=== PATIENT | female | born 1995 | race Caucasian/White ===

== ENCOUNTER 2022-11-08 23:54 | Emergency (ER) | payer BC, MEDICAID, SELFPAY ==
[2022-11-08 23:56] VITALS: BP 133/88; PULSE 102; RESP 16; TEMP 36.6; O2SAT 100; BMI 26.5
--- NOTE | 2022-11-09 00:04 | ECG_ITS ---
[facility] Test Date: 2022-11-09 Pat Name: Joya Salas Department: Room: Gender: Female Safety And Security Officer: : 1995 Requested By: Naheed Marie Order Number: [id number] Janki MD: Tarah Greene M.D. Measurements Intervals [place] Rate: 84 P: 59 TX: 138 QRS: 53 QRSD: 88 T: 42 QT: 359 QTc: 427 Interpretive Statements SINUS RHYTHM No previous ECG available for comparison Electronically Signed On 11-09-2022 19:39:39 CDT by Tarah Greene M.D. [id number]
--- NOTE | 2022-11-09 00:06 | XRR_ITS ---
PROCEDURE INFORMATION: Exam: XR Chest Exam date and time: 11/09/2022 12:35 AM Age: 27 years old Clinical indication: Pain; Chest pressure; Additional info: Chest pain TECHNIQUE: Imaging protocol: Radiologic exam of the chest. Views: 1 view. COMPARISON: No relevant prior studies available. FINDINGS: Lungs: Unremarkable. No consolidation. Pleural spaces: Unremarkable. No pleural effusion. No pneumothorax. Heart/Mediastinum: Unremarkable. No cardiomegaly. Bones/joints: Unremarkable. XR/XR chest 1V portable [id number] IMPRESSION: No acute findings.
--- NOTE | 2022-11-09 00:07 | W.ED.CHESTPA ---
HPI - Chest Pain General: Chief Complaint: Chest Pain Stated Complaint: cp Time Seen by Provider: 11/08/22 23:56 Source: patient Mode of arrival: ambulatory Limitations: no limitations History of Present Illness: Patient is a 27-year-old female presents to ED today with a complaint of chest pain. She states pain began a few hours ago after they had finished eating. She states pain is located to her left upper chest. Seems to be worse with movement. Patient states pain seems to come and go but when it comes on it is very sharp in nature. She is not having any shortness of breath or difficulty breathing. Denies any chest injury or trauma. No significant PMH. No hemoptysis. No risk factors for PE. MD complaint: chest pain Onset (ago): hour(s) Timing of current episode: constant Prior episodes: No Onset: during rest Pain location: left chest Pain radiation: none Severity: moderate Quality: sharp Relieving factors: nothing Exacerbating factors: movement Associated symptoms: Deny abdominal pain, dyspnea, fever(s), palpitations or syncope Treatment prior to arrival: none Risk Factors: Coronary artery disease risk factors: none Thoracic aortic dissection risk factors: none Related Data: On Oral Contraceptives: No Review of Systems Const: Denies: fever(s), chills, body aches, fatigue or malaise Card: Reports: chest pain; Denies: palpitations, irregular heart rhythm, edema, swelling of feet/ankles, lightheadedness, syncope, pre-syncope, dyspnea on exertion, orthopnea, leg pain with exertion or acrocyanosis Resp: Denies: dyspnea, productive cough, non-productive cough, wheezing, hemoptysis or chest congestion GI: Denies: abdominal pain : Denies: flank pain Musc: Denies: neck pain or back pain Neuro: Denies: headache(s) or dizziness PFS ED PFSH: Medical History Tooth abscess Toothache Female Reproductive History: Date of last menstrual period: 10/15/22 Physical Exam Const: COMMON NORMALS: average body habitus, patient oriented x3, no limitations, healthy appearing, alert and well nourished GENERAL APPEARANCE: cooperative and anxious ORIENTATION/CONSCIOUSNESS: Yes awake, Yes oriented to person, Yes oriented to place and Yes oriented to time HENMT: COMMON NORMALS: normocephalic and atraumatic HEAD & SCALP: normal to inspection, normocephalic and atraumatic Neck/C-Spine: COMMON NORMALS: full ROM GENERAL: Yes normal visual inspection, No anterior neck swelling and No submandibular swelling Chest: COMMONS NORMALS: normal inspection of the chest OTHER: TTP L upper chest wall Chest images (female): 1. TTP Resp: COMMON NORMALS: normal respiratory effort and clear to auscultation bilaterally AUSCULTATION: clear to auscultation bilaterally Cardio: COMMON NORMALS: regular rate and regular rhythm RATE: regular rate RHYTHM: regular rhythm GI: COMMON NORMALS: Normal to inspection, nondistended, normoactive bowel sounds present, Soft to palpation and non-tender PALPATION: Yes Soft to palpation : COMMON NORMALS: Yes no CVA tenderness BLADDER/KIDNEY EXAM: Yes no CVA tenderness Back/Pelvis: COMMON NORMALS: no CVA tenderness, thoracic and lumbar spine normal to inspection, no thoracic nor lumbar tenderness and thoraco-lumbar ROM normal Extremity: COMMON NORMALS: normal to inspection GENERAL: Yes normal exam except as noted Neuro: [place] COMA SCALE: document GCS findings [place] coma scale eye opening: Spontaneous [place] coma scale verbal response: Orientated [place] coma scale motor response: Obey commands [place] coma scale total score: 15 COMMON NORMALS: patient oriented x3, CN's II-XII intact bilaterally, moves all extremities, no focal motor deficits, no sensory deficits noted and gait normal SENSORIUM/ORIENTATION: Yes alert, Yes oriented to person, Yes oriented to place and Yes oriented to time Skin: COMMON NORMALS: no rashes or lesions noted GENERAL SKIN EXAM: no rashes or lesions noted Course Vital Signs: Vital signs: Vital Signs Temperature 97.8 F 11/08/22 23:56 Pulse Rate 102 H 11/08/22 23:56 Respiratory Rate 16 11/08/22 23:56 Blood Pressure 133/88 11/08/22 23:56 Pulse Oximetry 100 11/08/22 23:56 Oxygen Delivery Me thod 11/08/22 23:56 MDM - Chest Pain Medical Decision Making Patient is a nice 27-year-old female here for complaints of left upper chest pain. Pain is reproducible with movement and palpation of her left upper chest wall. Vital signs are stable. EKG is normal. CXR showing no acute findings. Patient was treated with Norflex and Toradol with almost complete resolution of her discomfort. Recommend she treat at home with anti-inflammatories and ice/heat. Return to ED precautions given. Lab Data Radiology Impressions Chest X-Ray 11/09/22 00:06 IMPRESSION: No acute findings. Discharge Plan Discharge Patient Disposition: Home Clinical Impression: Left-sided chest wall pain Condition: Stable Prescriptions: No Action amoxicillin 500 mg tablet 500 mg PO BID Qty: 30 0RF tramadol 50 mg tablet 50 mg PO Q8H PRN (Reason: pain) Qty: 20 0RF Discharge Orders: Discharge ED (Routine); Ordered 11/09/22 Ordered By: Naheed Marie Referrals: To Espinoza MD [Physician] - Andreas Child MD [Primary Care Provider] - Patient Instructions: Chest Pain - Chest Wall Coding Level of Care Code ED Workforce Manager for Renard Sánchez
[2022-11-09] MEDS: orphenadrine 30 mg/mL Inj 2 mL 60 MG IV (00:57)
[2022-11-09] MEDS: ketorolac 60 mg/2 mL INJ IVP (00:57)
== END 2022-11-09 01:45 | disposition home or self-care (01) ==
PROVIDERS: Emergency Provider Physician Assistant; PCP Family Medicine
DX: R07.89 Other chest pain (principal)
CPT/HCPCS: 71045; 93005; 96374; 96375; 99284; J1885; J2360

== ENCOUNTER 2023-06-02 15:39 | Emergency (ER) | payer BC, MEDICAID, SELFPAY ==
[2023-06-02 15:40] VITALS: BP 118/74; PULSE 113; RESP 18; TEMP 36.6; O2SAT 100; BMI 30.8
[2023-06-02 15:56] VITALS: BP 116/67; RESP 18; TEMP 36.6; O2SAT 100
--- NOTE | 2023-06-02 15:56 | ECG_ITS ---
[facility] Test Date: 2023-06-02 Pat Name: Joya Salas Department: Room: Gender: Female Agricultural Research Technician: : 1995 Requested By: Emmanuel Luong Order Number: [id number] Janki MD: Delores Pichardo M.D. Measurements Intervals [place] Rate: 86 P: 51 IN: 139 QRS: 45 QRSD: 84 T: 21 QT: 357 QTc: 427 Interpretive Statements SINUS RHYTHM INTERPRETATION BASED ON A DEFAULT AGE OF 40 YEARS Compared to ECG 11/09/2022 00:08:09 No significant changes Electronically Signed On 06-02-2023 17:16:49 CDT by Delores Pichardo M.D. [id number]
--- NOTE | 2023-06-02 16:03 | W.ED.ARRPALP ---
HPI - Arrhythmia/Palpitations General: Chief Complaint: Arrhythmia/Palpitations Stated Complaint: face is numb, increased hr Time Seen by Provider: 06/02/23 16:02 History of Present Illness: 27-year-old female presents emergency department with her family member. The patient states that she recently sustained a spider bite to the back side of her left lower leg and has been taking antibiotics as well as prednisone by mouth for her spider bite. She states that today she felt like her heart was racing and her fingers and face were tingling. She states she has had a significant amount of life stressors which include her employment and young child at home as well as financial difficulties and the life stressor of potentially purchasing a house. She states that her symptoms have improved since coming to the emergency department but she wanted to be evaluated for any life-threatening illnesses. Associated symptoms: Reports anxiety Review of Systems Card: Reports: palpitations Psych: Reports: anxiety and panic attacks [facility] ED PFSH: Medical History Tooth abscess Toothache Physical Exam Const: COMMON NORMALS: no acute distress, average body habitus, patient oriented x3 and alert HENMT: COMMON NORMALS: normocephalic, atraumatic, hearing grossly normal bilaterally, external ears normal, EAC's normal, Normal nasal mucous membranes and turbinates present and moist oral mucous membranes HEAD & SCALP: normocephalic and atraumatic NOSE: Normal nasal mucous membranes and turbinates present EXTERNAL EAR: Yes external ears normal EXTERNAL AUDITORY CANAL: EAC's normal Eye: COMMON NORMALS: Equal, round and reactive pupils present, EOMs intact bilaterally and no scleral icterus PUPIL: Yes Equal, round and reactive pupils present Neck/C-Spine: COMMON NORMALS: full ROM, no lymphadenopathy, supple and no meningeal signs Chest: COMMONS NORMALS: normal inspection of the chest and normal palpation of entire chest wall Resp: COMMON NORMALS: normal respiratory effort and clear to auscultation bilaterally AUSCULTATION: clear to auscultation bilaterally Cardio: COMMON NORMALS: regular rate, regular rhythm, S1 normal heart sound present, S2 normal heart sound present, No gallops present (Cardio), No murmurs present (Cardio), No rub (Cardio) and Peripheral pulses 2+ throughout RATE: regular rate RHYTHM: regular rhythm HEART SOUNDS: S1 normal heart sound present and S2 normal heart sound present PERIPHERAL PULSES: Peripheral pulses 2+ throughout GI: COMMON NORMALS: Normal to inspection, nondistended, normoactive bowel sounds present, Soft to palpation and non-tender PALPATION: Yes Soft to palpation : COMMON NORMALS: Yes no CVA tenderness BLADDER/KIDNEY EXAM: Yes no CVA tenderness Back/Pelvis: COMMON NORMALS: no CVA tenderness, thoracic and lumbar spine normal to inspection, no thoracic nor lumbar tenderness and thoraco-lumbar ROM normal Extremity: COMMON NORMALS: normal to inspection (Patient does have a healing wound to the left calf area), full ROM and capillary refill normal Neuro: COMMON NORMALS: patient oriented x3, CN's II-XII intact bilaterally, moves all extremities, no focal motor deficits, no sensory deficits noted and gait normal SENSORIUM/ORIENTATION: Yes alert MENINGEAL SIGNS: Yes no meningeal signs Psych: COMMON NORMALS: mental status grossly normal, Normal thought process present, cooperative and speech normal SPEECH: Yes normal speech THOUGHT PROCESS: Normal thought process present Skin: COMMON NORMALS: turgor normal GENERAL SKIN EXAM: turgor normal Course Vital Signs: Vital signs: Vital Signs Temperature 98 F 06/02/23 15:56 Pulse Rate 69 06/02/23 18:13 Respiratory Rate 18 06/02/23 18:13 Blood Pressure 109/63 06/02/23 18:13 Pulse Oximetry 98 06/02/23 18:13 Oxygen Delivery Me thod Room Air 06/02/23 18:00 MDM - Arrhythmia/Palpitations Medical Decision Making Physical exam completed and documented, we will obtain laboratory evaluation as well as a twelve-lead EKG to evaluate the patient's presenting complaints. I did have extensive discussion with the patient regarding seeking behavioral health counseling to help her deal with her life stressors. Patient did appear to be relieved after discussing her twelve-lead EKG and her laboratory findings. Patient was provided discharge instructions and was discharged home in stable condition after we ruled out electrolyte abnormalities and acute cardiac abnormalities. Medical Records I reviewed the patient's medical records. Lab Data I reviewed the patient's lab results. 06/02/23 16:12 06/02/23 16:12 Laboratory Results WBC 6.90 10^3/uL (3.29-11.43) 06/02/23 16:12 RBC 4.39 10^6/uL (3.85-5.65) 06/02/23 16:12 Hgb 13.70 g/dL (11.27-16.99) 06/02/23 16:12 Hct 42.6 % (36-47) 06/02/23 16:12 MCV 97.0 fl (85-98) 06/02/23 16:12 MCH 31.2 pg (27-33) 06/02/23 16:12 MCHC 32.2 g/dL (30-55) 06/02/23 16:12 RDW 12.3 % (12.1-15.1) 06/02/23 16:12 Plt Count 242 10^3/cmm (157-399) 06/02/23 16:12 MPV 9.8 fL (7.4-10.4) 06/02/23 16:12 Neut % (Auto) 54.9 % 06/02/23 16:12 Lymph % (Auto) 28.8 % 06/02/23 16:12 [place] % (Auto) 12.8 % 06/02/23 16:12 Eos % (Auto) 1.9 % 06/02/23 16:12 Baso % (Auto) 1.2 % 06/02/23 16:12 Neut # (Auto) 3.79 10^3/uL (1.8-7.7) 06/02/23 16:12 Lymph # (Auto) 2.0 10^3/uL (0.8-4.8) 06/02/23 16:12 [place] # (Auto) 0.9 10^3/uL (0.2-0.9) 06/02/23 16:12 Eos # (Auto) 0.1 10^3/uL (0.0-0.8) 06/02/23 16:12 Baso # (Auto) 0.1 10^3/uL (0.0-0.1) 06/02/23 16:12 Nucleated RBC % (auto) 0 % 06/02/23 16:12 Nucleated RBCs # 0.0 /100WBC 06/02/23 16:12 Sodium 140 mmol/L (136-145) 06/02/23 16:12 Potassium 4.7 mmol/L (3.5-5.1) 06/02/23 16:12 Chloride 103 mmol/L (98-107) 06/02/23 16:12 Carbon Dioxide 28 mmol/L (22-29) 06/02/23 16:12 Anion Gap 13.7 (5-19) 06/02/23 16:12 BUN 13 mg/dL (6-20) 06/02/23 16:12 Creatinine 0.7 mg/dL (0.5-0.9) 06/02/23 16:12 GFR Calculation 98.9 mL/min (90-130) 06/02/23 16:12 Glucose 102 mg/dL (65-115) 06/02/23 16:12 Calculated Osmolality 290 mOsm/kg (285-295) 06/02/23 16:12 Calcium 8.9 mg/dL (8.5-10.5) 06/02/23 16:12 Magnesium 2.1 mg/dL (1.7-2.3) 06/02/23 16:12 Total Bilirubin 0.2 mg/dL (0.15-1.2) 06/02/23 16:12 AST 18 U/L (0-32) 06/02/23 16:12 ALT 21 U/L (0-33) 06/02/23 16:12 Alkaline Phosphatase 54 U/L (35-105) 06/02/23 16:12 Total Protein 7.7 g/dL (6.6-8.7) 06/02/23 16:12 Albumin 4.6 g/dL (3.5-5.2) 06/02/23 16:12 Globulin 3.1 g/dL (1.3-4.6) 06/02/23 16:12 HCG, Qual Negative (Negative) 06/02/23 16:00 Urine Color Colorless (Yellow) 06/02/23 16:00 Urine Appearance Clear (CLEAR) 06/02/23 16:00 Urine pH 6 (5-7) 06/02/23 16:00 Ur Specific [place] 1.005 (1.005-1.030) 06/02/23 16:00 Urine Protein Neg (Negative) 06/02/23 16:00 Urine Glucose (UA) Norm (Normal) 06/02/23 16:00 Urine Ketones Negative (Negative) 06/02/23 16:00 Urine Blood Neg (Negative) 06/02/23 16:00 Urine Nitrate Negative (Negative) 06/02/23 16:00 Urine Bilirubin Neg (Negative) 06/02/23 16:00 Urine Urobilinogen Norm mg/dL (Negative) 06/02/23 16:00 Ur Leukocyte Esterase Negative (Negative) 06/02/23 16:00 Urine Opiates Screen Negative ng/mL (Negative) 06/02/23 16:00 Ur Barbiturates Screen Negative ng/mL (Negative) 06/02/23 16:00 Ur Phencyclidine Scrn Negative ng/mL (Negative) 06/02/23 16:00 Ur Amphetamines Screen Negative ng/mL (Negative) 06/02/23 16:00 U Benzodiazepines Scrn Negative ng/mL (Negative) 06/02/23 16:00 Urine Cocaine Screen Negative ng/mL (Negative) 06/02/23 16:00 U Marijuana (THC) Screen Negative ng/mL (Negative) 06/02/23 16:00 No radiology studies performed this visit Discharge Plan Discharge Patient Disposition: Home Clinical Impression: Anxiety, Palpitations Condition: Stable Prescriptions: No Action sulfamethoxazole-trimethoprim [Bactrim DS] 800-160 mg tablet 1 tab PO Q12H Qty: 14 0RF triamcinolone acetonide 0.5 % cream 1 applic topical BID Qty: 30 2RF Discharge Orders: Discharge ED (Routine); Ordered 06/02/23 Ordered By: Kwaku Becerra Referrals: Andreas Child MD [Primary Care Provider] - Discharge Diet: Advance as tolerated Discharge Activity: Resume usual activity Patient Instructions: Opioid Safety, Pain Management Coding Level of Care Code ED Audiovisual Equipment Operator for Renard Sánchez
[2023-06-02 16:21] LABS: Basophils # 0.1 10^3/uL (0.0-0.1); Basophils % 1.2 %; Eosinophils # 0.1 10^3/uL (0.0-0.8); Eosinophils % 1.9 %; Hematocrit 42.6 % (36-47); Lymphocytes % 28.8 %; Mean Corpuscular HGB Conc 32.2 g/dL (30-55); Mean Corpuscular Hemoglobin 31.2 pg (27-33); Mean Platelet Volume 9.8 fL (7.4-10.4); Monocytes # 0.9 10^3/uL (0.2-0.9); Monocytes % 12.8 %; Neutrophils # 3.79 10^3/uL (1.8-7.7); Neutrophils % 54.9 %; Nucleated Red Blood Cells % 0 %; Platelet Count 242 10^3/cmm (157-399); Red Blood Count 4.39 10^6/uL (3.85-5.65); Red Cell Distribution Width 12.3 % (12.1-15.1)
[2023-06-02 16:39] LABS: Alanine Aminotransferase 21 U/L (0-33); Albumin Level 4.6 g/dL (3.5-5.2); Alkaline Phosphatase 54 U/L (35-105); Anion Gap 13.7 (5-19); Aspartate Amino Transferase 18 U/L (0-32); Blood Urea Nitrogen 13 mg/dL (6-20); Calcium 8.9 mg/dL (8.5-10.5); Carbon Dioxide 28 mmol/L (22-29); Chloride 103 mmol/L (98-107); Globulin 3.1 g/dL (1.3-4.6); Glomerular Filtration Rate 98.9 mL/min (90-130); Glucose 102 mg/dL (65-115); Magnesium 2.1 mg/dL (1.7-2.3); Osmolality Calculated 290 mOsm/kg (285-295); Potassium 4.7 mmol/L (3.5-5.1); Sodium 140 mmol/L (136-145); Total Bilirubin 0.2 mg/dL (0.15-1.2); Total Protein 7.7 g/dL (6.6-8.7)
[2023-06-02 16:44] LABS: HCG Qualitative Urine. Negative (Negative)
[2023-06-02 17:26] LABS: Add Urine Microscopic? NO; Charge for UA Resulting for Rev
[2023-06-02 17:35] LABS: Bilirubin Urine Neg (Negative); Blood Urine Neg (Negative); Glucose Urine UA Norm (Normal); Ketones Urine Negative (Negative); Leukocyte Esterase Urine Negative (Negative); Nitrate Urine Negative (Negative); Protein Urine Neg (Negative); Specific Gravity, Urine 1.005 (1.005-1.030); Urine Appearance Clear (CLEAR); Urine Color Colorless (Yellow); Urobilinogen Urine Norm (Negative); pH Urine 6 (5-7)
[2023-06-02 17:39] LABS: Amphetamines Screen Urine Negative (Negative); Barbiturates Screen Urine Negative (Negative); Benzodiazepines Screen Urine Negative (Negative); Cocaine Screen Urine Negative (Negative); Opiate Screen Urine Negative (Negative); PCP Screen Urine Negative (Negative); THC Screen Urine Negative (Negative)
[2023-06-02 18:00] VITALS: BP 183/93; PULSE 69; RESP 18; O2SAT 98
[2023-06-02 18:13] VITALS: BP 109/63; PULSE 69; RESP 18; O2SAT 98
== END 2023-06-02 18:16 | disposition home or self-care (01) ==
PROVIDERS: Emergency Provider Internal Medicine; PCP Family Medicine
DX: F41.9 Anxiety disorder, unspecified (principal); R00.2 Palpitations
CPT/HCPCS: 36415; 80053; 80306; 81003; 81025; 83735; 85025; 93005; 99284

== ENCOUNTER 2023-10-27 13:58 | Outpatient (CLI) | payer BC, MEDICAID, SELFPAY ==
--- NOTE | 2023-10-27 14:02 | XR_ITS ---
WS: [id number] Exam: XR chest 2V* [id number] Date/Time of Exam: 10/27/2023 2:11 PM Reason For Exam: cough Comparison 11/09/2022. Findings: The lungs are clear and fully expanded. Costophrenic angles are sharp. No infiltrates. Bronchovascula r relief appears normal. Cardiac silhouette is unremarkable. Bony elements are intact. IMPRESSION: Unremarkable chest radiograph.
== END 2023-10-27 13:59 | disposition home or self-care (01) ==
LOC: RAD 13:58
PROVIDERS: PCP Family Medicine; Visit Provider Family Medicine
DX: J20.9 Acute bronchitis, unspecified (principal); R53.83 Other fatigue; E11.9 Type 2 diabetes mellitus without complications
CPT/HCPCS: 71046; 84443; 85025; 86140

== ENCOUNTER → 2024-05-19 15:01 | Outpatient (BNVA) | payer BC, SELFPAY | PROVIDERS: PCP Family Medicine; Visit Provider Family Medicine | DX: Z00.00 Encounter for general adult medical examination without abnormal findings (principal) | CPT/HCPCS: 87624 ==

== ENCOUNTER → 2024-09-19 13:42 | Outpatient (BNVA) | payer BC, SELFPAY | PROVIDERS: PCP Family Medicine; Visit Provider Family Medicine | DX: R53.83 Other fatigue (principal); K64.8 Other hemorrhoids | CPT/HCPCS: 84443 ==

== ENCOUNTER → 2024-11-28 14:01 | Outpatient (BNVA) | payer BC, SELFPAY | PROVIDERS: PCP Family Medicine; Visit Provider Family Medicine | DX: R53.83 Other fatigue (principal); R00.0 Tachycardia, unspecified | CPT/HCPCS: 80053; 83735; 84443; 85025 ==